=== PATIENT | male | born 1985 | race African-American/Black ===

== ENCOUNTER 2021-04-02 16:38 | Emergency (ER) | payer SELFPAY ==
--- NOTE | 2021-04-02 16:43 | EDM.PDOC ---
ED HPI GENERAL MEDICAL PROBLEM - General Stated Complaint: NECK PAIN Time Seen by Provider: 04/02/21 16:39 Source of Information: Reports: Patient History Limitations: Reports: No Limitations - History of Present Illness INITIAL COMMENTS - FREE TEXT/NARRATIVE: 35-year-old male no significant past medical history presents for atraumatic pain to left-sided neck. Patient notes that when he moves his neck a certain way he gets a shooting pain down the posterolateral side of the neck into his shoulder. Denies any falls, injury, heavy lifting. He has not had issues with this in the past. He has never had any advanced imaging of the neck. He denies chest pain or difficulty breathing. Neck Pain Score (Numeric/FACES): 7 - Related Data Allergies Allergy/AdvReac Type Severity Reaction Status Date / Time No Known Allergies Allergy Verified 04/02/21 17:05 Home Meds: Home Meds Cyclobenzaprine [Flexeril] 10 mg PO TID #20 tab 04/02/21 [Rx] Ibuprofen [Motrin] 600 mg PO Q6H PRN #20 tab 04/02/21 [Rx] ED ROS GENERAL - Review of Systems Review Of Systems: Comprehensive ROS is negative, except as noted in HPI. ED EXAM, GENERAL - Physical Exam Exam: See Below Exam Limited By: No Limitations General Appearance: Alert, WD/WN, No Apparent Distress Throat/Mouth: Normal Voice, No Airway Compromise Head: Atraumatic, Normocephalic Neck: Normal Inspection, Supple, Non-Tender, Full Range of Motion, Other (Positive left-sided Spurling's maneuver) Respiratory/Chest: No Respiratory Distress, Lungs Clear, Normal Breath Sounds, No Accessory Muscle Use Cardiovascular: Normal Peripheral Pulses, Regular Rate, Rhythm Extremities: Normal Inspection Neurological: Alert, Normal Cognition, Normal Gait Psychiatric: Normal Affect, Normal Mood Skin Exam: Warm, Dry, Intact, Normal Color Course - Vital Signs Last Recorded V/S: Last Vital Signs Temp 97.3 F 04/02/21 17:05 Pulse 85 04/02/21 17:05 Resp 16 04/02/21 17:05 BP 136/94 H 04/02/21 17:05 Pulse Ox 98 04/02/21 17:05 - Orders/Labs/Meds Meds: Medications Discontinued Medications Generic Name Dose Route Start Last Admin Trade Name Freq PRN Reason Stop Dose Admin Cyclobenzaprine HCl 10 mg 04/02/21 17:20 04/02/21 17:31 Cyclobenzaprine 10 Mg Tab PO 04/02/21 17:21 10 mg ONETIME ONE Administration Dexamethasone 10 mg 04/02/21 17:20 04/02/21 17:31 Dexamethasone 10 Mg/Ml Sdv IM 04/02/21 17:21 10 mg STAT STA Administration Ketorolac Tromethamine 30 mg 04/02/21 17:20 04/02/21 17:31 Ketorolac 30 Mg/Ml Sdv IM 04/02/21 17:21 30 mg STAT STA Administration - Re-Assessments/Exams Free Text/Narrative Re-Assessment/Exam: 04/02/21 17:21 Patient symptoms are suggestive of cervical radiculopathy. Explained to patient that he will need to follow-up with a primary care physician and consider MRI imaging for more definitive diagnosis. Today we will treat with steroid, analgesia, muscle relaxant. Departure - Departure Time of Disposition: 17:34 Disposition: Home, Self-Care 01 Condition: Good Clinical Impression: Cervical radiculopathy - Discharge Information Prescriptions: Cyclobenzaprine [Flexeril] 10 mg PO TID #20 tab Ibuprofen [Motrin] 600 mg PO Q6H PRN #20 tab PRN Reason: Pain Instructions: Radicular Pain Referrals: PCP,Not In Area [Primary Care Provider] - Additional Instructions: Your symptoms are consistent with cervical radiculopathy. Educational information about cervical radiculopathy has been provided. I have sent a prescription for prescription strength Motrin as well as a muscle relaxant called Flexeril to your pharmacy. You have also been given a long-acting steroid called Decadron that can help with any associated inflammation and may help with your pain. I would recommend following up with your primary care physician as the best way to diagnose this condition is with an MRI of the neck. If pain becomes intolerable or you are having any other concerning symptoms you are encouraged to return to the emergency department for reassessment. The following information is given to patients seen in the emergency department who are being discharged to home. This information is to outline your options for follow-up care. We provide all patients seen in our emergency department with a follow-up referral. The need for follow-up, as well as the timing and circumstances, are variable depending upon the specifics of your emergency department visit. If you don't have a primary care physician on staff, we will provide you with a referral. We always advise you to contact your personal physician following an emergency department visit to inform them of the circumstance of the visit and for follow-up with them and/or the need for any referrals to a consulting specialist. The emergency department will also refer you to a specialist when appropriate. This referral assures that you have the opportunity for follow-up care with a specialist. All of these measure are taken in an effort to provide you with optimal care, which includes your follow-up. Under all circumstances we always encourage you to contact your private physician who remains a resource for coordinating your care. When calling for follow-up care, please make the office aware that this follow-up is from your recent emergency room visit. If for any reason you are refused follow-up, please contact the [facility] Emergency Department at and asked to speak to the emergency department charge nurse. Please follow up with your primary care physician. If you do not have a primary care physician, see below: [facility] [address] [place] [id number] [facility] [address] [place] [id number] [facility] [address] [place] [id number] Sepsis Event Note (ED) - Focused Exam Vital Signs: Vital Signs Temp Pulse Resp BP Pulse Ox 04/02/21 17:05 97.3 F 85 16 136/94 H 98
[2021-04-02] MEDS ORDERED: Cyclobenzaprine 10 MG Tab PO ONE (17:20)
[2021-04-02] MEDS ORDERED: Ketorolac 30 MG/ML SDV IM STA (17:20)
[2021-04-02] MEDS ORDERED: Dexamethasone 10 MG/ML SDV IM STA (17:20)
== END 2021-04-02 17:51 | disposition home or self-care (01) ==
LOC: MW.ED 16:38
DX: M54.12 Radiculopathy, cervical region (principal)
CPT/HCPCS: 96372; 99283; A9270; J1100; J1885